=== PATIENT | male | born 1955 | race Hispanic/Latino ===

== ENCOUNTER 2017-07-10 10:56 | Outpatient (CLI) | payer OTHER ==
--- NOTE | 2017-07-10 13:23 | Cat Scan Report ---
CT abdomen and pelvis with contrast: Left lower quadrant pain. Following administration of IV and oral contrast transverse images are obtained from the lower chest to the ischium with coronal and sagittal 2-D reformatted images. Cardiovascular calcifications are present. The abdominal organs are unremarkable. There is a 14 mm cyst in the left kidney. There is scattered mural calcifications of the abdominal aorta with normal size and contour. Scattered diverticula are present in the sigmoid colon. The appendix is visualized. No inflammatory changes are identified. No free air and no free fluid noted. There is diffuse lumbar spondylosis with narrowing of multiple interspaces. Impressions: Multiple findings as indicated above with no acute pathology.
== END 2017-07-10 10:57 | disposition home or self-care (01) ==
LOC: SPVIMAG 10:56
PROVIDERS: ATTEND Internal Medicine
DX: N28.1 Cyst of kidney, acquired (principal); K57.30 Diverticulosis of large intestine without perforation or abscess without bleeding; I70.0 Atherosclerosis of aorta; M47.896 Other spondylosis, lumbar region
CPT/HCPCS: 74177; Q9967